=== PATIENT | female | born 1970 | race Caucasian/White ===

== ENCOUNTER 2017-12-29 17:19 | Inpatient (IN) ==
[2017-12-29] MEDS ORDERED: MORPHINE 4 MG/1 ML VIAL IV STA (17:41)
[2017-12-29] MEDS ORDERED: ASPIRIN 325 MG TABLET PO STA (17:41)
[2017-12-29] MEDS ORDERED: NITROGLYCERIN 2% OINT 1 INCH/GM PACK TOP STA (17:41)
[2017-12-29] MEDS ORDERED: ONDANSETRON 4 MG/2 ML VIAL IV STA (17:41)
[2017-12-29] MEDS ORDERED: DILTIAZEM 50 MG/10 ML VIAL IV STA (17:48)
[2017-12-29] MEDS ORDERED: ALUM/MAG/SIMETH/LIDO VISC 1:1 30 ML BOTTLE PO STA (17:48)
[2017-12-29 18:24] LABS: Basophils % 0.5 % (0.0-0.8); Eosinophils # 0.1 10*3/uL (0.0-0.87); Eosinophils % 1.7 % (0.00-10.9); Hematocrit 34.6 VOL% (35.7-47.0); Hemoglobin 11.1 GM/DL (12.0-16.0); Immature Granulocytes % 0.6 %; Immature Granulocytes Absolute 0.04 #; Lymphocytes # 1.6 10*3/uL (1.4-4.0); Lymphocytes % 24.1 % (21.3-54.2); Mean Corpuscular HGB Conc 32.1 GM/DL (32-36); Mean Corpuscular Hemoglobin 25 PG (27-34); Mean Platelet Volume 10.7 FL (9.6-12.0); Monocytes # 0.5 10*3/uL (0.11-0.8); Monocytes % 6.9 % (1.7-12.7); Neutrophils # 4.3 10*3/uL (1.4-7.4); Neutrophils % 66.2 % (38.7-73.9); Platelet Count 189 T/CUMM (130-400); Red Blood Count 4.38 MC/CUMM (3.8-5.5); Red Cell Distribution Width 15.9 % (9.3-17.3); White Blood Count 6.6 T/CUMM (4-12)
[2017-12-29 18:34] LABS: INR 3.1
[2017-12-29] MEDS ORDERED: SODIUM CHLORIDE 0.9% 500 ML IV ONE (18:36)
[2017-12-29 18:37] LABS: PT Patient Result 31.6 SECS
[2017-12-29 18:45] LABS: Alanine Aminotransferase 27 U/L (13-56); Albumin 3.2 G/DL (3.4-5.0); Alkaline Phosphatase 30 U/L (45-117); Aspartate Amino Transferase 23 U/L (0-37); Bilirubin,Total < 0.39 MG/DL (0.2-1.0); Blood Urea Nitrogen 14 MG/DL (7-18); Calcium 8.2 MG/DL (8.5-10.1); Glucose 344 MG/DL (74-106); Osmolality,Calculated 280.4 MOS/KG (273-304); Potassium 3.5 MMOL/L (3.5-5.1); Sodium 133 MMOL/L (136-145); Total Protein 7.3 G/DL (6.4-8.3)
[2017-12-29 18:45] LABS: Apearance,Urine CLEAR (Clear); Bilirubin,Urine Negative (Negative); Blood, Urine Negative (Negative); Glucose,Urine (UA) >=500 mg/dL (Negative); Hyaline Casts,Urine 1 /LPF (0-3); Ketones,Urine Negative (Negative); Mucus,Urine Occasional /LPF (Occasional); Nitrite,Urine Negative (Negative); Protein,Urine Negative; RBC,Urine 1 /HPF (0-4); Urine Color Yellow (Yellow); Urine Specific Gravity 1.023 (1.001-1.035); Urine Urobilinogen < 2.0 EU/DL (0.2-1.0); WBC,Urine 1 /HPF (0-6)
[2017-12-29] MEDS ORDERED: MAGNESIUM SULF RIDER 2 GM in PREMIX 1 EACH IV STA (18:53)
[2017-12-29 19:21] LABS: Lactic Acid 3.4 MMOL/L (0.4-2.0)
[2017-12-29] MEDS ORDERED: GLUCAGON 1 MG VIAL IM PRN (19:32)
[2017-12-29] MEDS ORDERED: DEXTROSE 50% 25 GM/50 ML VIAL IV PRN (19:32)
[2017-12-29 19:42] LABS: Risk Ratio 3.39; VLDL CHOLESTEROL 25.8 MG/DL
[2017-12-29] MEDS ORDERED: MAGNESIUM HYDROXIDE SUSP 30 ML UDCUP PO ONE (19:52)
[2017-12-29] MEDS ORDERED: LACTULOSE 20 GM/30 ML UDCUP PO STA (19:52)
[2017-12-29 20:38] LABS: INR 3.1
[2017-12-29 20:38] LABS: Allen Test Positive
[2017-12-29] MEDS ORDERED: GABAPENTIN 300 MG CAPSULE ONE (20:38)
[2017-12-29] MEDS: GABAPENTIN 600 MG TABLET PO SCH (20:38)
[2017-12-29 20:39] LABS: ABG Base Excess 2.8 MMOL/L (-2.5-2.5); ABG HCO3 26.8 MMOL/L (20-26); ABG Oxygen Saturation 93.3 % (95-100); ABG PCO2 44.6 MM HG (35-48); ABG PH 7.406 (7.35-7.45); ABG PO2 73.3 MM HG (80-95); ABG TCO2 25.3 MMOL/L (23-27)
[2017-12-29 20:40] LABS: PT Patient Result 31.1 SECS
[2017-12-29] MEDS: PANTOPRAZOLE 40 MG TABLET PO SCH (22:28)
[2017-12-29] MEDS: WARFARIN 5 MG TABLET PO SCH (22:28)
[2017-12-29] MEDS: INSULIN REGULAR 100 UNIT/ML SUBCUT SCH (22:29)
[2017-12-29] MEDS: PRAVASTATIN 40 MG TABLET PO SCH (22:29)
[2017-12-29] MEDS: QUEtiapine 100 MG TABLET PO SCH (22:29)
[2017-12-29] MEDS: METOPROLOL TARTRATE 25 MG TABLET PO SCH (22:29)
[2017-12-29] MEDS: PIPERACILLIN/TAZOBACTAM 3,375 MG in SODIUM CHLORIDE 0.9% 100 ML IV SCH (22:30)
[2017-12-29] MEDS: AZTREONAM 2,000 MG in SYRINGE 1 EACH IV SCH (22:30)
[2017-12-30] MEDS: ACETAMINOPHEN 325 MG TABLET PO PRN ×2 (01:25→07:36)
[2017-12-30] MEDS ORDERED: INSULIN REGULAR 100 UNIT/ML SUBCUT ONE (04:30)
[2017-12-30] MEDS: AZTREONAM 2,000 MG in SYRINGE 1 EACH IV SCH ×4 (04:33→21:27)
[2017-12-30 05:25] LABS: Basophils % 0.3 % (0.0-0.8); Eosinophils # 0.1 10*3/uL (0.0-0.87); Eosinophils % 1.5 % (0.00-10.9); Hematocrit 32.7 VOL% (35.7-47.0); Hemoglobin 10.7 GM/DL (12.0-16.0); Immature Granulocytes % 0.8 %; Immature Granulocytes Absolute 0.05 #; Lymphocytes # 1.3 10*3/uL (1.4-4.0); Lymphocytes % 21.2 % (21.3-54.2); Mean Corpuscular HGB Conc 32.7 GM/DL (32-36); Mean Corpuscular Hemoglobin 26 PG (27-34); Mean Corpuscular Volume 77.9 FL (87-102); Mean Platelet Volume 11.3 FL (9.6-12.0); Monocytes # 0.4 10*3/uL (0.11-0.8); NRBC # 0.02 10*3/uL; Neutrophils # 4.3 10*3/uL (1.4-7.4); Neutrophils % 69.2 % (38.7-73.9); Platelet Count 183 T/CUMM (130-400); Red Cell Distribution Width 15.9 % (9.3-17.3); White Blood Count 6.2 T/CUMM (4-12)
[2017-12-30 05:50] LABS: Bilirubin,Total 0.6 MG/DL (0.2-1.0); Calcium 8.1 MG/DL (8.5-10.1); Osmolality,Calculated 282.2 MOS/KG (273-304); Potassium 4.1 MMOL/L (3.5-5.1)
[2017-12-30 06:00] LABS: Hypochromasia 1+
[2017-12-30] MEDS ORDERED: INSULIN GLARGINE 100 UNIT/ML SUBCUT SCH (06:00)
[2017-12-30 06:01] LABS: Microcytosis 1+; Ovalocytes Few; Platelet Estimate Adequate
[2017-12-30 06:09] LABS: PT Patient Result 30.9 SECS
[2017-12-30] MEDS: PIPERACILLIN/TAZOBACTAM 3,375 MG in SODIUM CHLORIDE 0.9% 100 ML IV SCH ×2 (06:47→15:55)
[2017-12-30] MEDS: INSULIN REGULAR 100 UNIT/ML SUBCUT SCH ×4 (08:40→22:18)
[2017-12-30] MEDS ORDERED: CHLORPROMAZINE 100 MG PO SCH (09:00)
[2017-12-30] MEDS: LIDOCAINE 5% PATCH TRANSDERM SCH (09:53)
[2017-12-30] MEDS: MOMETASONE 50 MCG NASAL SPRAY 17 GM BOTTLE BOTH NARES SCH (09:54)
[2017-12-30] MEDS: METOPROLOL TARTRATE 25 MG TABLET PO SCH ×2 (09:55→21:28)
[2017-12-30] MEDS: LISINOPRIL 5 MG TABLET PO SCH (09:55)
[2017-12-30] MEDS: GABAPENTIN 600 MG TABLET PO SCH ×3 (09:55→21:27)
[2017-12-30] MEDS: SERTRALINE 100 MG TABLET PO SCH (09:55)
[2017-12-30] MEDS: FUROSEMIDE 40 MG/4 ML VIAL IV SCH ×2 (09:56→18:02)
[2017-12-30] MEDS: PANTOPRAZOLE 40 MG VIAL IV SCH (09:59)
[2017-12-30] MEDS: POLYETHYLENE GLYCOL POWDER 17 GM PACK PO SCH (10:54)
[2017-12-30] MEDS ORDERED: NITROGLYCERIN SL 0.4 MG TABLET SL ONE (11:03)
[2017-12-30] MEDS ORDERED: MORPHINE 10 MG/1 ML VIAL ONE (11:04)
[2017-12-30] MEDS ORDERED: SODIUM CHLORIDE 0.9% 250 ML IV ONE (11:12)
[2017-12-30] MEDS: SODIUM CHLORIDE 0.9% 1,000 ML IV SCH (11:27)
[2017-12-30 12:10] LABS: ABG Base Excess 4.4 MMOL/L (-2.5-2.5); ABG HCO3 28.3 MMOL/L (20-26); ABG PH 7.377 (7.35-7.45); ABG PO2 83.4 MM HG (80-95); ABG TCO2 27.9 MMOL/L (23-27)
[2017-12-30 12:13] LABS: Basophils % 0.2 % (0.0-0.8); Eosinophils # 0.1 10*3/uL (0.0-0.87); Eosinophils % 1.6 % (0.00-10.9); Hematocrit 32.1 VOL% (35.7-47.0); Hemoglobin 10.1 GM/DL (12.0-16.0); Immature Granulocytes % 0.7 %; Immature Granulocytes Absolute 0.04 #; Lymphocytes # 1.2 10*3/uL (1.4-4.0); Mean Corpuscular HGB Conc 31.5 GM/DL (32-36); Mean Corpuscular Hemoglobin 25 PG (27-34); Mean Corpuscular Volume 79.3 FL (87-102); Mean Platelet Volume 10.2 FL (9.6-12.0); Monocytes # 0.4 10*3/uL (0.11-0.8); Monocytes % 6.2 % (1.7-12.7); Neutrophils % 70.3 % (38.7-73.9); Platelet Count 188 T/CUMM (130-400); Red Blood Count 4.05 MC/CUMM (3.8-5.5); Red Cell Distribution Width 15.9 % (9.3-17.3); White Blood Count 5.7 T/CUMM (4-12)
[2017-12-30] MEDS ORDERED: ASPIRIN CHEW 81 MG TABLET PO ONE (12:13)
[2017-12-30 12:22] LABS: INR 3.8
[2017-12-30 12:25] LABS: PT Patient Result 37.9 SECS
[2017-12-30 12:45] LABS: Osmolality,Calculated 278.1 MOS/KG (273-304); Potassium 3.9 MMOL/L (3.5-5.1)
[2017-12-30 12:49] LABS: Troponin I Only < 0.015 NG/ML (0.00-0.045)
[2017-12-30] MEDS: ASCORBIC ACID 500 MG TABLET PO SCH ×2 (16:15→21:27)
[2017-12-30] MEDS: INSULIN GLARGINE 100 UNIT/ML SUBCUT SCH (18:01)
[2017-12-30] MEDS: PRAVASTATIN 40 MG TABLET PO SCH (21:27)
[2017-12-30] MEDS: QUEtiapine 100 MG TABLET PO SCH (21:27)
[2017-12-30] MEDS: PANTOPRAZOLE 40 MG TABLET PO SCH (21:27)
[2017-12-30] MEDS: WARFARIN 5 MG TABLET PO SCH (21:27)
[2017-12-30 21:38] LABS: Troponin I Only < 0.015 NG/ML (0.00-0.045)
[2017-12-31] MEDS: AZTREONAM 2,000 MG in SYRINGE 1 EACH IV SCH ×3 (04:30→16:52)
[2017-12-31] MEDS: SODIUM CHLORIDE 0.9% 1,000 ML IV SCH ×3 (05:12→16:38)
[2017-12-31 05:23] LABS: Basophils % 0.6 % (0.0-0.8); Eosinophils # 0.1 10*3/uL (0.0-0.87); Eosinophils % 2.2 % (0.00-10.9); Hematocrit 32.3 VOL% (35.7-47.0); Hemoglobin 9.8 GM/DL (12.0-16.0); Immature Granulocytes % 0.6 %; Immature Granulocytes Absolute 0.03 #; Lymphocytes # 1.3 10*3/uL (1.4-4.0); Lymphocytes % 23.9 % (21.3-54.2); Mean Corpuscular HGB Conc 30.3 GM/DL (32-36); Mean Corpuscular Hemoglobin 25 PG (27-34); Mean Corpuscular Volume 81.4 FL (87-102); Mean Platelet Volume 10.7 FL (9.6-12.0); Monocytes # 0.4 10*3/uL (0.11-0.8); Neutrophils # 3.6 10*3/uL (1.4-7.4); Neutrophils % 65.7 % (38.7-73.9); Platelet Count 209 T/CUMM (130-400); Red Blood Count 3.97 MC/CUMM (3.8-5.5); Red Cell Distribution Width 15.9 % (9.3-17.3); White Blood Count 5.4 T/CUMM (4-12)
[2017-12-31 05:35] LABS: INR 4.7
[2017-12-31 05:39] LABS: PT Patient Result 46.8 SECS
[2017-12-31] MEDS: PIPERACILLIN/TAZOBACTAM 3,375 MG in SODIUM CHLORIDE 0.9% 100 ML IV SCH ×3 (05:40→14:34)
[2017-12-31 05:55] LABS: Bilirubin,Total 0.4 MG/DL (0.2-1.0); Calcium 7.7 MG/DL (8.5-10.1); Potassium 3.9 MMOL/L (3.5-5.1); Total Protein 6.8 G/DL (6.4-8.3)
[2017-12-31] MEDS: INSULIN GLARGINE 100 UNIT/ML SUBCUT SCH (08:49)
[2017-12-31] MEDS: SERTRALINE 100 MG TABLET PO SCH (08:50)
[2017-12-31] MEDS: LISINOPRIL 5 MG TABLET PO SCH (08:50)
[2017-12-31] MEDS: GABAPENTIN 600 MG TABLET PO SCH ×2 (08:50→14:35)
[2017-12-31] MEDS: INSULIN REGULAR 100 UNIT/ML SUBCUT SCH ×3 (08:50→16:07)
[2017-12-31] MEDS: LIDOCAINE 5% PATCH TRANSDERM SCH (08:51)
[2017-12-31] MEDS: METOPROLOL TARTRATE 25 MG TABLET PO SCH (08:51)
[2017-12-31] MEDS: ASCORBIC ACID 500 MG TABLET PO SCH (08:51)
[2017-12-31] MEDS: FUROSEMIDE 40 MG/4 ML VIAL IV SCH ×2 (08:52→16:52)
[2017-12-31] MEDS: PANTOPRAZOLE 40 MG VIAL IV SCH (08:57)
[2017-12-31] MEDS: POLYETHYLENE GLYCOL POWDER 17 GM PACK PO SCH (09:00)
[2017-12-31] MEDS: MOMETASONE 50 MCG NASAL SPRAY 17 GM BOTTLE BOTH NARES SCH (09:00)
[2017-12-31] MEDS ORDERED: BISACODYL 10 MG SUPP RECTAL ONE (09:08)
[2017-12-31 16:52] VITALS: BP 110/60
== END 2017-12-31 16:33 | DRG 313 ==
LOC: EDUNIT# → EDBD → N.ED 17:19 → N.EDINP 19:22 → N.TELES 19:53
PROVIDERS: ADMIT Internal Medicine; ATTEND Internal Medicine

== ENCOUNTER 2018-03-09 09:40 | Observation (INO) ==
[2018-03-09] MEDS ORDERED: MORPHINE 4 MG/1 ML VIAL IV STA (10:38)
[2018-03-09] MEDS ORDERED: ONDANSETRON 4 MG/2 ML VIAL IV STA (10:38)
[2018-03-09] MEDS ORDERED: ASPIRIN 325 MG TABLET PO STA (10:38)
[2018-03-09 10:48] LABS: Basophils % 0.3 % (0.0-0.8); Eosinophils % 0.7 % (0.00-10.9); Hemoglobin 11.7 GM/DL (12.0-16.0); Immature Granulocytes % 0.3 %; Immature Granulocytes Absolute 0.02 #; Lymphocytes # 1.3 10*3/uL (1.4-4.0); Lymphocytes % 20.9 % (21.3-54.2); Mean Corpuscular HGB Conc 31.6 GM/DL (32-36); Mean Corpuscular Hemoglobin 24 PG (27-34); Mean Corpuscular Volume 77.1 FL (87-102); Mean Platelet Volume 10.7 FL (9.6-12.0); Monocytes # 0.4 10*3/uL (0.11-0.8); Monocytes % 6.8 % (1.7-12.7); Neutrophils # 4.3 10*3/uL (1.4-7.4); Platelet Count 199 T/CUMM (130-400); Red Cell Distribution Width 15.4 % (9.3-17.3)
[2018-03-09 10:53] LABS: PT Patient Result 10.7 SECS
[2018-03-09 11:15] LABS: Alanine Aminotransferase 36 U/L (13-56); Albumin 3.5 G/DL (3.4-5.0); Alkaline Phosphatase 32 U/L (45-117); Aspartate Amino Transferase 50 U/L (0-37); Bilirubin,Total < 0.39 MG/DL (0.2-1.0); Blood Urea Nitrogen 22 MG/DL (7-18); Calcium 8.3 MG/DL (8.5-10.1); Glucose 317 MG/DL (74-106); Osmolality,Calculated 282.2 MOS/KG (273-304); Potassium 4.5 MMOL/L (3.5-5.1); Sodium 134 MMOL/L (136-145); Total Protein 7.4 G/DL (6.4-8.3)
[2018-03-09] MEDS ORDERED: MAGNESIUM SULF RIDER 2 GM in PREMIX 1 EACH IV STA (12:02)
[2018-03-09] MEDS ORDERED: ONDANSETRON 4 MG/2 ML VIAL IV PRN (14:05)
[2018-03-09] MEDS ORDERED: DEXTROSE 50% 25 GM/50 ML VIAL IV PRN (14:05)
[2018-03-09] MEDS ORDERED: ACETAMINOPHEN 325 MG TABLET PO PRN (14:05)
[2018-03-09] MEDS ORDERED: GLUCAGON 1 MG VIAL IM PRN (14:05)
[2018-03-09] MEDS ORDERED: MAGNESIUM SULF RIDER 2 GM in PREMIX 1 EACH IV PRN (14:18)
[2018-03-09] MEDS ORDERED: MAGNESIUM SULF RIDER 4 GM in PREMIX 1 EACH IV PRN (14:18)
[2018-03-09] MEDS ORDERED: ENOXAPARIN 40 MG/0.4 ML SYRINGE SUBCUT SCH (14:30)
[2018-03-09] MEDS ORDERED: INDOMETHACIN 50 MG CAPSULE PO PRN (16:49)
[2018-03-09] MEDS: INSULIN LISPRO 100 UNIT/ML SUBCUT SCH ×2 (17:29→22:54)
[2018-03-09] MEDS ORDERED: QUEtiapine 100 MG TABLET PO SCH (21:00)
[2018-03-09] MEDS: GABAPENTIN 600 MG TABLET PO SCH (22:50)
[2018-03-09] MEDS: DOCUSATE SODIUM 100 MG CAPSULE PO SCH (22:52)
[2018-03-09] MEDS: chlorproMAZINE 25 MG TABLET PO SCH (22:53)
[2018-03-09] MEDS: APIXABAN 2.5 MG TABLET PO SCH (22:53)
[2018-03-09] MEDS: OLANZapine 10 MG VIAL IM SCH (22:54)
[2018-03-09] MEDS: COLCHICINE 0.6 MG TABLET PO SCH (23:07)
[2018-03-10 03:00] LABS: Basophils % 0.5 % (0.0-0.8); Eosinophils # 0.1 10*3/uL (0.0-0.87); Eosinophils % 0.8 % (0.00-10.9); Hematocrit 34.8 VOL% (35.7-47.0); Hemoglobin 10.5 GM/DL (12.0-16.0); Immature Granulocytes % 0.5 %; Immature Granulocytes Absolute 0.03 #; Lymphocytes # 1.8 10*3/uL (1.4-4.0); Lymphocytes % 28.7 % (21.3-54.2); Mean Corpuscular HGB Conc 30.2 GM/DL (32-36); Mean Corpuscular Hemoglobin 24 PG (27-34); Mean Corpuscular Volume 79.8 FL (87-102); Mean Platelet Volume 10.9 FL (9.6-12.0); Monocytes # 0.5 10*3/uL (0.11-0.8); Monocytes % 7.7 % (1.7-12.7); Neutrophils # 3.9 10*3/uL (1.4-7.4); Neutrophils % 61.8 % (38.7-73.9); Platelet Count 195 T/CUMM (130-400); Red Blood Count 4.36 MC/CUMM (3.8-5.5); Red Cell Distribution Width 15.6 % (9.3-17.3); White Blood Count 6.2 T/CUMM (4-12)
[2018-03-10 03:46] LABS: Calcium 8.6 MG/DL (8.5-10.1); Osmolality,Calculated 286.8 MOS/KG (273-304); Thyroid Stimulating Hormone 2.08 uIU/ml (0.358-3.74)
[2018-03-10] MEDS ORDERED: LISINOPRIL 5 MG TABLET PO SCH (08:00)
[2018-03-10] MEDS ORDERED: MOMETASONE 50 MCG NASAL SPRAY 17 GM BOTTLE BOTH NARES SCH (08:00)
[2018-03-10] MEDS ORDERED: POLYETHYLENE GLYCOL POWDER 17 GM PACK PO SCH (08:00)
[2018-03-10] MEDS ORDERED: SERTRALINE 100 MG TABLET PO SCH (08:00)
[2018-03-10] MEDS ORDERED: GABAPENTIN 600 MG TABLET PO SCH (08:00)
[2018-03-10] MEDS ORDERED: PANTOPRAZOLE 40 MG TABLET PO SCH (09:00)
[2018-03-10] MEDS: INSULIN LISPRO 100 UNIT/ML SUBCUT SCH ×2 (10:37→13:00)
[2018-03-10] MEDS ORDERED: OLANZapine 10 MG VIAL IM PRN (10:37)
[2018-03-10] MEDS: APIXABAN 2.5 MG TABLET PO SCH (10:38)
[2018-03-10] MEDS: DOCUSATE SODIUM 100 MG CAPSULE PO SCH (10:38)
[2018-03-10] MEDS: sitaGLIPtin 100 MG TABLET PO SCH ×3 (10:38→10:42)
[2018-03-10] MEDS: COLCHICINE 0.6 MG TABLET PO SCH (10:38)
[2018-03-10] MEDS: chlorproMAZINE 25 MG TABLET PO SCH (10:40)
[2018-03-10] MEDS ORDERED: SODIUM CHLORIDE 0.9% 1,000 ML IV SCH (12:00)
[2018-03-10] MEDS: OLANZapine 10 MG VIAL IM SCH (12:05)
[2018-03-10 12:07] VITALS: BP 114/73
[2018-03-10] MEDS ORDERED: ACETAMINOPHEN 325 MG TABLET PO SCH (13:30)
[2018-03-10] MEDS ORDERED: LIDOCAINE 5% PATCH TRANSDERM SCH (13:30)
[2018-03-10] MEDS ORDERED: traMADol 50 MG TABLET PO SCH (13:30)
[2018-03-10] MEDS: GABAPENTIN 600 MG TABLET PO SCH (14:41)
[2018-03-10] MEDS ORDERED: INSULIN GLARGINE 100 UNIT/ML SUBCUT SCH (18:00)
== END 2018-03-10 18:05 ==
LOC: EDUNIT# → EDBD → N.ED 09:40 → N.EDINP 09:40 → N.2W 13:44 → N.TELES 15:27
PROVIDERS: ADMIT Internal Medicine; ATTEND Internal Medicine